=== PATIENT | male | born 1985 ===

== ENCOUNTER → 2018-04-16 | Outpatient (CLI) | payer OTHER ==
[2018-04-16 10:04] LABS: ALBUMIN 3.9 gm/dl (3.4-5.0); BLOOD UREA NITROGEN 10 mg/dl (7-18); CALCIUM 8.9 mg/dl (8.5-10.1); CARBON DIOXIDE 29 mmol/L (21-32); CREATININE 0.96 mg/dl (0.60-1.40); GLUCOSE 96 mg/dl (70-99); SODIUM 139 mmol/L (136-145)
[2018-04-16 10:17] LABS: ALKALINE PHOSPHATASE 83 U/L (45-117); ALT/SGPT 167 U/L (12-78); AST/SGOT 53 U/L (15-37); CHOLESTEROL 186 mg/dl (0-200); LDL CHOLESTEROL CALCULATED 132 mg/dl; TOTAL PROTEIN 7.7 gm/dl (6.4-8.2)
== END | disposition home or self-care (01) ==
LOC: C.LAB1850 08:40
PROVIDERS: ATTEND Neuromusculoskeletal Medicine & OMM
DX: E78.5 Hyperlipidemia, unspecified (principal); E66.3 Overweight; R74.8 Abnormal levels of other serum enzymes